=== PATIENT | female | born 1985 | race Caucasian/White ===

== ENCOUNTER → 2018-03-30 | Outpatient (CLI) | payer OTHER ==
[~2018-03-30] MED LIST: ALBUTEROL INHALER; ALPR1 PO; BUPR100 PO; CODACE30 PO; CYCL10 PO; HYDACE5 PO; HYDPAM50 PO; Hydrochloroth12.5 MG PO; IBUP600 PO; LAMO100 PO; LORA1 PO; NAPR500; NICO14TP TOP; Norco 5-325 Ta1 EACH PO; PENVK500 PO; PRED20 PO; RXCODACET PO; SERT50; TRAZ50 PO; YAZMINE; [UNRECOGNIZED DRUG - REMARK]
[2018-03-30 12:09] LABS: U Amphetamine Screen Not Detected; U Barbituate Screen Not Detected; U Benzodiazapine Screen Not Detected; U Buprenorphine Screen Not Detected; U Cannabinoids Screen Not Detected; U Cocaine Screen Not Detected; U Methadone Screen Not Detected; U Methamphetamine Screen Not Detected; U Opiates Screen Not Detected; U Oxycodone Screen Not Detected; U Phencyclidine Screen Not Detected; U Propoxyphene Screen Not Detected
== END ==
LOC: LAB 10:56 → LAB SHORT 10:56
PROVIDERS: Nurse Practitioner Family
DX: Z51.81 Encounter for therapeutic drug level monitoring (principal); Z79.899 Other long term (current) drug therapy

== ENCOUNTER → 2018-09-12 | Outpatient (CLI) | payer OTHER ==
[2018-09-12 11:07] LABS: U Amphetamine Screen Not Detected; U Barbituate Screen Not Detected; U Benzodiazapine Screen DETECTED; U Buprenorphine Screen Not Detected; U Cannabinoids Screen Not Detected; U Cocaine Screen Not Detected; U Methadone Screen Not Detected; U Methamphetamine Screen Not Detected; U Opiates Screen Not Detected; U Oxycodone Screen Not Detected; U Phencyclidine Screen Not Detected; U Propoxyphene Screen Not Detected
== END ==
LOC: LAB SHORT 10:44 → LAB 10:44
PROVIDERS: Registered Nurse
DX: Z51.81 Encounter for therapeutic drug level monitoring (principal); F41.1 Generalized anxiety disorder; Z79.899 Other long term (current) drug therapy
CPT/HCPCS: G0480

== ENCOUNTER 2021-02-24 09:32 | Emergency (ER) | payer OTHER ==
[~2021-02-24] VITALS: Ht 165.1 cm; Wt 108.9 kg
[~2021-02-24 09:32] MED LIST changes: +CIPR500 PO; +DULO60 PO; +LOMOTIL 2.5-0.1 EACH PO; +LORAZEPAM0.5 MG PO; +METR500 PO; +OXYC5 PO; +PRAZ2 PO; +Prozac40 MG PO
== END 2021-02-24 11:05 | disposition home or self-care (01) ==
LOC: ER 09:32
DX: S06.9X1A Unspecified intracranial injury with loss of consciousness of 30 minutes or less, initial encounter (principal); M25.551 Pain in right hip; M25.511 Pain in right shoulder; M54.6 Pain in thoracic spine; Z87.891 Personal history of nicotine dependence; Z79.899 Other long term (current) drug therapy; W18.30XA Fall on same level, unspecified, initial encounter
CPT/HCPCS: 99283

== ENCOUNTER 2021-06-18 07:43 | Day surgery (SDC) | payer OTHER ==
[~2021-06-18] VITALS: Ht 167.6 cm; Wt 109.8 kg
[~2021-06-18 07:43] MED LIST changes: +1/2 NS 250ml250 ML; +DIPATR PO; +MELO7.5 PO; +Monodox100 MG PO
[2021-06-18] MEDS ORDERED: [UNRECOGNIZED DRUG - OTHER] (08:03)
--- NOTE | 2021-06-18 08:38 | NUR ---
Ambulatory in Day Surgery. History, Chart, Medications and Allergies reviewed before start of procedure. Patient states colon prep results clear. Patient confirms NPO status and agrees with scheduled surgery. Pre-Op teaching done. Pt verbalizes understanding. Patient States Post-Procedure ride home has been arranged WITH [employer]. PT REPORTS CLEAN FOR 6 YEARS.
--- NOTE | 2021-06-18 08:54 | NUR ---
06/18/21 0854 KIP STUBBS History, Chart, Medications and Allergies reviewed before start of procedure. Patient confirms NPO status and agrees with scheduled surgery. 3-LEAD EKG REVIEWED WITH PHYSICIAN PRIOR TO START OF PROCEDURE. MONITOR INTACT WITH CONTINUOUS PULSE OXIMETRY AND INTERMITTENT BP. PATIENT DETERMINED TO BE ASA APPROPRIATE FOR PROPOFOL SEDATION PRIOR TO START OF PROCEDURE BY DR. BINGHAM. 02 VIA NASAL CANNULA.
--- NOTE | 2021-06-18 10:40 | NUR ---
Patient up to Ambulate independently. Gait steady. Discharge instructions reviewed with patient. Patient verbalizes understanding. Copy given to patient to take home. Patient States Post-Procedure ride home has been arranged. Discharged via wheelchair to private car for ride home.
== END 2021-06-18 10:40 | disposition home or self-care (01) ==
LOC: ORSCMMR 07:43 → ORD 09:00 → ORSCSDS 09:00 → ORSCMMR 10:40
PROVIDERS: Student in an Organized Health Care Education/Training Program
PROC: 0DBC8ZX Excision of Ileocecal Valve, Via Natural or Artificial Opening Endoscopic, Diagnostic (ICD-10-PCS; principal; 2021-06-18 09:00)
PROC: 0DBP8ZX Excision of Rectum, Via Natural or Artificial Opening Endoscopic, Diagnostic (ICD-10-PCS; principal; 2021-06-18 09:00)
PROC: 0DBK8ZX Excision of Ascending Colon, Via Natural or Artificial Opening Endoscopic, Diagnostic (ICD-10-PCS; principal; 2021-06-18 09:00)
PROC: 0DBL8ZX Excision of Transverse Colon, Via Natural or Artificial Opening Endoscopic, Diagnostic (ICD-10-PCS; principal; 2021-06-18 09:00)
PROC: 0DBN8ZX Excision of Sigmoid Colon, Via Natural or Artificial Opening Endoscopic, Diagnostic (ICD-10-PCS; principal; 2021-06-18 09:00)
PROC: 0DBH8ZX Excision of Cecum, Via Natural or Artificial Opening Endoscopic, Diagnostic (ICD-10-PCS; principal; 2021-06-18 09:00)
DX: Z86.010 Personal history of colon polyps (principal); D12.5 Benign neoplasm of sigmoid colon; D12.3 Benign neoplasm of transverse colon; D12.2 Benign neoplasm of ascending colon; D12.0 Benign neoplasm of cecum; D12.8 Benign neoplasm of rectum; K52.9 Noninfective gastroenteritis and colitis, unspecified; F41.0 Panic disorder [episodic paroxysmal anxiety]
CPT/HCPCS: 88305; J2250; J2704; J7120

== ENCOUNTER 2021-12-22 10:25 | Day surgery (SDC) | payer OTHER ==
[~2021-12-22] VITALS: Ht 165.1 cm; Wt 105.4 kg
[~2021-12-22 10:25] MED LIST changes: +[UNRECOGNIZED DRUG - OTHER]
[2021-12-22] MEDS ORDERED: LORA10ER PO (10:59)
[2021-12-22] MEDS ORDERED: Ativan1 MG PO (11:03)
[2021-12-22] MEDS ORDERED: MELATONIN5 M1 PO (11:04)
[2021-12-22] MEDS ORDERED: POTA8 (11:05)
[2021-12-22] MEDS ORDERED: MAGCHL64ER PO (11:07)
== END 2021-12-22 12:56 | disposition home or self-care (01) ==
LOC: ORSCSDS 10:25
PROVIDERS: Student in an Organized Health Care Education/Training Program
PROC: 0DBH8ZX Excision of Cecum, Via Natural or Artificial Opening Endoscopic, Diagnostic (ICD-10-PCS; principal; 2021-12-22 12:00)
PROC: 0DBN8ZX Excision of Sigmoid Colon, Via Natural or Artificial Opening Endoscopic, Diagnostic (ICD-10-PCS; principal; 2021-12-22 12:00)
DX: D12.0 Benign neoplasm of cecum (principal); K63.5 Polyp of colon; Z86.010 Personal history of colon polyps; F31.9 Bipolar disorder, unspecified
CPT/HCPCS: 88305; J2250; J2704

== ENCOUNTER 2022-09-18 07:25 | Emergency (ER) | payer OTHER ==
[~2022-09-18] VITALS: Ht 165.1 cm; Wt 104.3 kg
[2022-09-18] VITALS (12 sets, daily range): BP systolic 108–136; BP diastolic 51–77
[~2022-09-18 07:25] MED LIST changes: +Ativan1 MG PO; +LORA10ER PO; +MAGCHL64ER PO; +MELATONIN5 M1 PO; +POTA8
[2022-09-18 08:08] LABS: BASOPHILS ABSOLUTE AUTO 0.02 K/mm3 (0.00-0.23); BASOPHILS PERCENT AUTO 0 % (0-2); EOSINOPHILS ABSOLUTE AUTO 0.14 K/mm3 (0.00-0.68); EOSINOPHILS PERCENT AUTO 1 % (0-6); Hematocrit 40.5 % (33.0-51.0); Hemoglobin 13.9 g/dL (11.5-16.0); IMMATURE GRAN ABSOLUTE AUTO 0.03 K/mm3 (0.00-0.10); IMMATURE GRAN PERCENT AUTO 0 % (0-1); LYMPHOCYTES ABSOLUTE AUTO 2.18 K/mm3 (0.84-5.20); LYMPHOCYTES PERCENT AUTO 20 % (21-46); MONOCYTES PERCENT AUTO 5 % (4-13); Mean Corpuscular HGB 32.3 pg (26.0-34.0); Mean Corpuscular HGB Conc 34.3 g/dL (31.5-36.5); Mean Corpuscular Volume 94 fL (80-100); Mean Platelet Volume 10.1 fL (9.1-12.4); NEUTROPHILS PERCENT AUTO 73 % (41-73); Platelet Count 278 K/mm3 (150-400); RDW Coefficient Variation 12.2 % (11.7-14.2); RDW Standard Deviation 42.9 fL (35.1-46.3); Red Blood Cell Count 4.31 M/mm3 (3.80-5.20); White Blood Cell Count 11.07 K/mm3 (4.00-11.30)
[2022-09-18 08:22] LABS: Source, Urine Clean Catch
[2022-09-18 08:27] LABS: Appearance, Urine Clear (Clear); Bilirubin, Urine Neg (Neg); Blood, Urine 1+ (Neg); Color, Urine Yellow (P-Yellow); Glucose Qualitative, Urine Neg (Neg); Ketones, Urine Neg (Neg); Leukocyte Esterase, Urine Neg (Neg); Nitrite, Urine Neg (Neg); Protein, Urine Neg (Neg); Specific Gravity, Urine 1.015 (1.003-1.022); Urobilinogen, Urine NORM (Normal)
[2022-09-18 08:43] LABS: Albumin, Blood 3.8 g/dL (3.4-5.0); Bilirubin, Total 0.3 mg/dL (0.1-1.0); Bun/Creatinine Ratio 16.2 (12.0-20.0); Creatinine, Blood 0.68 mg/dL (0.40-1.00); Globulin, Blood 3.7 g/dL (2.2-4.0); Potassium, Blood 3.6 mmol/L (3.5-5.5); Total Protein, Blood 7.5 g/dL (6.4-8.2)
[2022-09-18 08:52] LABS: Bacteria Not Seen /hpf; Red Blood Cells, Urine 0-2 /hpf (0-2); Squamous Epithelial Cells Not Seen /hpf (Few); White Blood Cells, Urine Not Seen /hpf (0-5)
--- NOTE | 2022-09-18 16:28 | NUR ---
PT TO PACU, ALERT AND ORIENTED, AWAKE AND TALKING. PT REPORTS PAIN LEVEL A 4/10. GIVEN CRACKERS AND PUDDING- TOLERATES WELL. MEDICATED C OXYCODONE 5 MG PO. DENIES NAUSEA. PT GIVEN THOROUGH DC INSTRUCTIONS, VERBALIZES AN UNDERSTANDING S QUESTIONS. PTS DAUGHTERS AT SIDE. IV DC'D, CATH INTACT AND PRESSURE DRESSING APPLIED. PT ASSISTED c DRESSING. TOLERATES WELL. OTD IN NAD VIA WC, ESCORTED TO CAR BY RN. SAFE RIDE HOME C DAUGHTERS.
== END 2022-09-18 12:44 | disposition other institution (70) ==
LOC: ER 07:25
PROVIDERS: Emergency Medicine
DX: K35.80 Unspecified acute appendicitis (principal); Z88.0 Allergy status to penicillin; Z88.5 Allergy status to narcotic agent; Z79.899 Other long term (current) drug therapy; Z87.891 Personal history of nicotine dependence
CPT/HCPCS: 74177; 80053; 81001; 81025; 83690; 85025; 88304; 96365-59; 96367; 96375; 99285-25; J0330; J0696; J1100; J1170; J1885; J2250; J2405; J2704; J2710; J3010; J7120; Q9967

== ENCOUNTER → 2023-05-03 | Outpatient (CLI) | payer OTHER | LOC: LAB 08:15 → LAB SHORT 08:15 | DX: N85.8 Other specified noninflammatory disorders of uterus (principal) | CPT/HCPCS: 88305 ==

== ENCOUNTER 2023-12-19 05:54 | Day surgery (SDC) | payer OTHER ==
[2023-12-19] VITALS (11 sets, daily range): BP systolic 101–123; BP diastolic 54–83
[~2023-12-19] VITALS: Ht 165.1 cm; Wt 103.6 kg
[~2023-12-19 05:54] MED LIST changes: +ATEN25 PO
[2023-12-19] MEDS ORDERED: CeFAZolin Sodium 2,000 MG in NS 100 ML IV SCH (06:30)
[2023-12-19] MEDS ORDERED: Lactated Ringer's 1,000 ML IV SCH ×2 (06:30→11:05)
[2023-12-19] MEDS ORDERED: Phenazopyridine HCl 100 MG Tab PO ONE (06:35)
[2023-12-19] MEDS ORDERED: Lidocaine HCl 2% 20 ML MDV ONE (07:22)
[2023-12-19] MEDS ORDERED: propofoL 20 ML IV ONE (07:22)
[2023-12-19] MEDS ORDERED: FentaNYL Citrate 50 MCG/ML 2 ML Injection ONE ×2 (07:22→08:15)
[2023-12-19] MEDS ORDERED: Rocuronium Bromide 10 MG/ML 5ML Injection IV ONE ×2 (07:22→08:25)
[2023-12-19] MEDS ORDERED: Bupivacaine 0.5% HCl 5 MG/ML 30MLVIAL ONE (07:24)
--- NOTE | 2023-12-19 07:41 | NUR ---
PRE OP NOTE PT A&OX4, BREATHING RA, VSS, PT HAS CHRONIC BACK PAIN- 7/10 IS BASELINE PAIN RATING, PT BELONGINGS STOWED BELOW STRETCHER. Ambulatory in Day Surgery Patient confirms NPO status and agrees with scheduled surgery. Pre-Op teaching done. Pt verbalizes understanding.
[2023-12-19] MEDS ORDERED: Dexamethasone Sod Phos 10 MG/ML 1ML VIAL ONE (07:55)
[2023-12-19] MEDS ORDERED: ePHEDrine Sulfate 50 MG/ML 1ML Injection ONE (08:02)
[2023-12-19] MEDS ORDERED: Glycopyrrolate 0.2 MG/ML 5ML VIAL ONE (08:19)
--- NOTE | 2023-12-19 09:07 | NUR ---
12/19/[address] EXAMINED THE PATIENT'S LIVER BED WITH FROM [id number].
[2023-12-19] MEDS ORDERED: Ondansetron HCl 2 MG / ML 2ML Vial ONE (09:35)
[2023-12-19] MEDS ORDERED: Sugammadex Sodium 200 MG/2ML SDV (100 MG/ML) ONE (09:43)
[2023-12-19] MEDS ORDERED: HYDROmorphone HCl/Pf 1MG SYR ONE ×2 (10:34→10:53)
[2023-12-19] MEDS ORDERED: Ketorolac Tromethamine 30mg Vial ONE (10:34)
[2023-12-19] MEDS ORDERED: HYDROmorphone HCl/Pf 1MG SYR IV PRN (11:00)
[2023-12-19] MEDS ORDERED: DiphenhydrAMINE HCL 25 MG Cap PO PRN (11:00)
[2023-12-19] MEDS ORDERED: Simethicone 80 MG Chew PO PRN (11:00)
[2023-12-19] MEDS ORDERED: FLU VACC TS2024-25(6MOS UP)/PF 45 MCG/0.5 ML SYRINGE IM SCH (11:00)
[2023-12-19] MEDS ORDERED: Metoclopramide HCl 5MG / ML 2ML Vial IV PRN (11:05)
[2023-12-19] MEDS ORDERED: Naloxone HCl 0.4MG / ML 1ML Vial IV PRN (11:05)
[2023-12-19] MEDS ORDERED: Ondansetron HCl 2 MG / ML 2ML Vial IV PRN (11:05)
[2023-12-19] MEDS ORDERED: OxyCODONE HCL 5 MG TAB PO PRN ×2 (11:10)
[2023-12-19] MEDS ORDERED: Acetaminophen 500 MG Tab PO SCH (12:00)
[2023-12-19] MEDS ORDERED: Ketorolac Tromethamine 30mg Vial IV SCH (12:00)
[2023-12-19] MEDS ORDERED: Ibuprofen 400 MG Tab PO SCH (16:00)
[2023-12-19] MEDS ORDERED: OxyCODONE HCL 5 MG TAB PO SCH (16:00)
[2023-12-19] MEDS ORDERED: Apixaban 5 MG Tab PO SCH (21:00)
[2023-12-19] MEDS ORDERED: DULoxetine HCL 60 MG Capsule DR PO SCH (21:00)
[2023-12-19] MEDS ORDERED: Prazosin HCl 1 MG Cap PO SCH (21:00)
[2023-12-19] MEDS ORDERED: Polyethylene Glycol 3350 17 gm PO SCH (21:00)
[2023-12-20] MEDS ORDERED: Atenolol 25 MG Tab PO SCH (09:00)
== END 2023-12-19 13:35 | disposition home or self-care (01) ==
LOC: ORSCMMR 05:54 → ORD 07:30 → ORSCMMR 07:30 → BC 11:25 → ORSCMMR 13:35 → BC 13:35
PROVIDERS: Obstetrics & Gynecology
PROC: 0UB77ZZ Excision of Bilateral Fallopian Tubes, Via Natural or Artificial Opening (ICD-10-PCS; principal; 2023-12-19 07:30)
PROC: 0UT2FZZ Resection of Bilateral Ovaries, Via Natural or Artificial Opening With Percutaneous Endoscopic Assistance (ICD-10-PCS; principal; 2023-12-19 07:30)
PROC: 0WJF4ZZ Inspection of Abdominal Wall, Percutaneous Endoscopic Approach (ICD-10-PCS; principal; 2023-12-19 07:30)
PROC: 0UT9FZZ Resection of Uterus, Via Natural or Artificial Opening With Percutaneous Endoscopic Assistance (ICD-10-PCS; principal; 2023-12-19 07:30)
PROC: 8E0W4CZ Robotic Assisted Procedure of Trunk Region, Percutaneous Endoscopic Approach (ICD-10-PCS; principal; 2023-12-19 07:30)
DX: N93.8 Other specified abnormal uterine and vaginal bleeding (principal); D25.9 Leiomyoma of uterus, unspecified; N80.03 Adenomyosis of the uterus; N80.00 Endometriosis of the uterus, unspecified; D28.2 Benign neoplasm of uterine tubes and ligaments; N83.12 Corpus luteum cyst of left ovary; N83.11 Corpus luteum cyst of right ovary; N83.8 Other noninflammatory disorders of ovary, fallopian tube and broad ligament; K21.9 Gastro-esophageal reflux disease without esophagitis; D68.51 Activated protein C resistance; E66.01 Morbid (severe) obesity due to excess calories; Z68.38 Body mass index [BMI] 38.0-38.9, adult; Z79.899 Other long term (current) drug therapy
CPT/HCPCS: 86850; 86900; 86901; 88108; 88307; A9270; J0690; J1100; J1170; J1885; J2405; J2704; J3010; J7120

== ENCOUNTER 2024-01-02 10:36 | Day surgery (SDC) | payer OTHER ==
[~2024-01-02] VITALS: Ht 167.6 cm; Wt 103.1 kg
[~2024-01-02 10:36] MED LIST changes: +Lactated Ringer's 1,000 ML IV ONE
[2024-01-02] MEDS ORDERED: TIZA4 PO (11:31)
[2024-01-02] MEDS ORDERED: propofoL 20 ML IV ONE (11:38)
[2024-01-02] MEDS ORDERED: FentaNYL Citrate 50 MCG/ML 2 ML Injection ONE ×2 (11:39→13:35)
[2024-01-02] MEDS ORDERED: Glycopyrrolate 0.2 MG/ML 5ML VIAL ONE (11:39)
[2024-01-02] MEDS ORDERED: Dexamethasone Sod Phos 10 MG/ML 1ML VIAL ONE (11:39)
[2024-01-02] MEDS ORDERED: Midazolam HCl 1MG / ML 2ML Vial ONE (11:39)
[2024-01-02] MEDS ORDERED: Ondansetron HCl 2 MG / ML 2ML Vial ONE ×2 (11:39→13:37)
[2024-01-02] MEDS ORDERED: CeFAZolin Sodium 2,000 MG VIAL ONE (11:49)
[2024-01-02] MEDS ORDERED: NS 50 ML IV ONE (11:49)
[2024-01-02] MEDS ORDERED: Lactated Ringer's 1,000 ML IV ONE (12:04)
--- NOTE | 2024-01-02 12:51 | NUR ---
01/02/24 1251 Gerri Lema 0.15ML OF EPI ADDED TO ROPIVACAINE 0.5% (150MG/30ML) TO MAKE ROPIVACAINE 0.5% WITH EPI 1:200,000.
[2024-01-02] MEDS ORDERED: Ropivacaine 0.5% HCl/Pf 5 MG/ML 20ML VIAL INJ ONE (12:57)
[2024-01-02] MEDS ORDERED: EPINEPhrine HCl 1 MG/ML 1ML Amp XX ONE (13:00)
--- NOTE | 2024-01-02 13:52 | NUR ---
01/02/24 1352 DORCAS HADLEY STATES PAIN 09/27. FENTANYL TOTAL GIVEN SO FAR IS 50MCG AND ZOFRAN 4MG GIVEN WELL. PT STATES THAT NAUSEA IS GETTING BETTER. PT HAS ICE PACK ON ARM AND HER HEAD SHE HAS A HEADACHE. WILL GIVE HER COFFEE ONCE IN ROOM SHE STATES THAT SHE NORMALLY DRINKS COFFEE IN THE MORNING AND SHE REPORTS NOT HAVING A ELIZABETH ON ADMIT.
[2024-01-02] MEDS ORDERED: HYDROcodone 5-APAP 325 TAB ONE (14:14)
[2024-01-02 14:18] VITALS: BP 145/82
--- NOTE | 2024-01-02 14:30 | NUR ---
01/02/24 4690 DORCAS HADLEY CURRENTLY PAIN IS 5/10. STATES SHE JUST WANTS TO GO HOME.
== END 2024-01-02 14:52 | disposition home or self-care (01) ==
LOC: ORSCSDS 10:36
PROVIDERS: Orthopaedic Surgery
PROC: 0RJ Upper Joints, Inspection (ICD-10-PCS; principal; 2024-01-02 12:00)
PROC: 01N50ZZ Release Median Nerve, Open Approach (ICD-10-PCS; principal; 2024-01-02 12:00)
DX: G56.01 Carpal tunnel syndrome, right upper limb (principal); Z87.891 Personal history of nicotine dependence; E66.9 Obesity, unspecified; Z68.36 Body mass index [BMI] 36.0-36.9, adult; Z79.899 Other long term (current) drug therapy; D68.51 Activated protein C resistance
CPT/HCPCS: A9270; J0171; J0690; J1100; J2250; J2405; J2704; J2795; J3010; J7120

== ENCOUNTER 2024-01-12 12:06 | Day surgery (SDC) | payer OTHER ==
[~2024-01-12] VITALS: Ht 177.8 cm; Wt 101.3 kg
[~2024-01-12 12:06] MED LIST changes: -Lactated Ringer's 1,000 ML IV ONE; +TIZA4 PO
[2024-01-12] MEDS ORDERED: AMITIZA24 MC1 (12:31)
[2024-01-12] MEDS ORDERED: propofoL 50 ML IV ONE ×3 (12:45→13:47)
[2024-01-12] MEDS ORDERED: Lactated Ringer's 1,000 ML IV ONE ×3 (12:45→13:45)
[2024-01-12] MEDS ORDERED: Ondansetron HCl 2 MG / ML 2ML Vial ONE (14:02)
[2024-01-12 14:35] VITALS: BP 124/78
== END 2024-01-12 14:30 | disposition home or self-care (01) ==
LOC: ORSCSDS 12:06
DX: Z12.11 Encounter for screening for malignant neoplasm of colon (principal); D12.2 Benign neoplasm of ascending colon; K63.5 Polyp of colon; D3A.8 Other benign neuroendocrine tumors; K76.9 Liver disease, unspecified; D68.51 Activated protein C resistance; F31.9 Bipolar disorder, unspecified; F41.9 Anxiety disorder, unspecified; F32.A Depression, unspecified; Z79.899 Other long term (current) drug therapy; Z87.891 Personal history of nicotine dependence
CPT/HCPCS: 88305; J2405; J2704; J7120

== ENCOUNTER → 2024-06-11 | Outpatient (CLI) | payer OTHER ==
[~2024-06-11] MED LIST changes: +AMITIZA24 MC1
[2024-06-13 22:27] LABS: CALPROTECTIN,FECAL 15 ug/g (<=49)
== END | disposition home or self-care (01) ==
LOC: LAB SHORT 04:45 → LAB 04:45
PROVIDERS: Registered Nurse
DX: K59.04 Chronic idiopathic constipation (principal); K52.832 Lymphocytic colitis
CPT/HCPCS: 83993

== ENCOUNTER → 2024-11-12 | Outpatient (CLI) | payer OTHER ==
[2024-11-12 17:22] LABS: Bacterial Vaginosis PCR Negative (NEGATIVE); Candida Group, PCR NOT DETECTED (NOT DETECT); Candida glabrata-krusei, PCR NOT DETECTED (NOT DETECT)
== END | disposition home or self-care (01) ==
LOC: LAB 12:30 → LAB SHORT 12:30
PROVIDERS: Obstetrics & Gynecology
DX: N76.0 Acute vaginitis (principal)
CPT/HCPCS: 81515

== ENCOUNTER 2024-12-01 08:57 | Emergency (ER) | payer OTHER ==
[~2024-12-01] VITALS: Ht 167.6 cm; Wt 99.8 kg
[2024-12-01] MEDS ORDERED: DiphenhydrAMINE HCl 50 MG/ML 1ML Vial IV ONE (09:40)
[2024-12-01] MEDS ORDERED: Dexamethasone Sod Phos 10 MG/ML 1ML VIAL IV ONE (09:40)
[2024-12-01] MEDS ORDERED: Ketorolac Tromethamine 15mg Vial IV ONE (09:40)
[2024-12-01] MEDS ORDERED: Prochlorperazine Edisylate 10 mg Vial IV ONE (09:45)
[2024-12-01] MEDS ORDERED: NS 1,000 ML IV SCH (09:45)
[2024-12-01 11:15] VITALS: BP 102/84
== END 2024-12-01 11:30 | disposition home or self-care (01) ==
LOC: ER 08:57
DX: R51.9 Headache, unspecified (principal)
CPT/HCPCS: 96374; 96375; 99283-25; J0780; J1100; J1200; J1885; J7030